=== PATIENT | male | born 1990 | race African-American/Black ===

== ENCOUNTER 2016-09-13 16:06 | Emergency (ER) | payer SELFPAY ==
--- NOTE | 2016-09-13 16:21 | ER Document Report ---
ED Medical Screen (RME) - General Stated Complaint: POSSIBLE BITE TO RIGHT THIGH Mode of Arrival: Ambulatory Information source: Patient Notes: 26 y/o M presents to ED c/o area of redness and tenderness to right thigh since yesterday. States thinks was bitten by insect but did did not witness it. I have greeted and performed a rapid initial assessment of this patient. A comprehensive ED assessment and evaluation of the patient, analysis of test results and completion of the medical decision making process will be conducted by additional ED providers. TRAVEL OUTSIDE OF THE [place] IN LAST 30 DAYS: No - Related Data Allergies/Adverse Reactions: No Known Allergies Allergy (Verified 09/13/16 16:19) Past Medical History Past Surgical History: Reports: Hx Orthopedic Surgery - R shoulder - Immunizations Immunizations up to date: Yes Hx Diphtheria, Pertussis, Tetanus Vaccination: No - pt refusing update Physical Exam - Vital signs Vitals: Temp Pulse Resp BP Pulse Ox 98.6 F 90 16 141/83 H 95 09/13/16 16:17 09/13/16 16:17 09/13/16 16:17 09/13/16 16:17 09/13/16 16:17 Course - Vital Signs Vital signs: Temp Pulse Resp BP Pulse Ox 98.6 F 90 16 141/83 H 95 09/13/16 16:17 09/13/16 16:17 09/13/16 16:17 09/13/16 16:17 09/13/16 16:17
--- NOTE | 2016-09-13 16:53 | ER Document Report ---
HPI - HPI Patient complains to provider of: possible bite right thigh Onset: Other - several days, worse yesterday, red Onset/Duration: Gradual Quality of pain: Achy, Throbbing Pain Level: 5 Context: 26 yo male with worsening possible bite to right anterior mid thigh. getting redder, warmer, more painful. No hx MRSA. Associated Symptoms: None Exacerbated by: Denies Relieved by: Denies Similar symptoms previously: No Recently seen / treated by doctor: No - ROS ROS below otherwise negative: Yes Systems Reviewed and Negative: Yes All other systems reviewed and negative - DERM Skin Color: Normal Past Medical History - General Information source: Patient - Social History Smoking Status: Never Smoker Chew tobacco use (# tins/day): No Frequency of alcohol use: None Drug Abuse: None Lives with: Spouse/Significant other Family History: Reviewed & Not Pertinent Patient has suicidal ideation: No Patient has homicidal ideation: No - Medical History Medical History: Negative Past Surgical History: Reports: Hx Orthopedic Surgery - R shoulder - Immunizations Immunizations up to date: Yes Hx Diphtheria, Pertussis, Tetanus Vaccination: No - pt refusing update Vertical Provider Document - CONSTITUTIONAL Agree With Documented VS: Yes Exam Limitations: No Limitations General Appearance: No Apparent Distress - INFECTION CONTROL TRAVEL OUTSIDE OF THE [place] IN LAST 30 DAYS: No - HEENT HEENT: Normocephalic - NECK Neck: Supple - RESPIRATORY O2 Sat by Pulse Oximetry: 95 - MUSCULOSKELETAL/EXTREMETIES Musculoskeletal/Extremeties: MAEW, FROM, Tender - red indurated 2 cm abscess with crusted center. light pink soft surrounding 10cm tissue - NEURO Level of Consciousness: Awake, Alert Motor/Sensory: No Motor Deficit, No Sensory Deficit - DERM Integumentary: Warm, Dry, Abscess - see above Course - Vital Signs Vital signs: Temp Pulse Resp BP Pulse Ox 98.6 F 90 16 141/83 H 95 09/13/16 16:17 09/13/16 16:17 09/13/16 16:17 09/13/16 16:17 09/13/16 16:17 Procedures - Incision and Drainage Right Thigh Time completed: 18:11 Type: Simple Anesthetic type: 1% Lidocaine mL's of anesthetic: 4 Blade size: 11 I&D procedure: Betadine prep applied, Sterile dressing applied, Other - NS irrigation Incision Method: Incision made by scalpel - t shape Amount/type of drainage: moderate pus, blood Adult Front & Back picture: 1 - abscess location Discharge - Discharge Clinical Impression: I and D rt thigh abscess Condition: Good Disposition: HOME, SELF-CARE Instructions: Warm Packs ([facility]), Elevation & Warmth ([facility]), Trimethoprim-Sulfa ( [facility]), Acetaminophen, Use of Fnkv-Snh-Cebfejw Ibuprofen ([facility]), Ultram ([facility]) Additional Instructions: warm compress, elevate take the dressing off on sunday morning to inspect the wound unless it feels worse, inspect sooner no work tomorrow recheck on sunday if it is not better, meaning less red, less pain return sooner if worse with fever, swelling red, hot Prescriptions: Sulfamethoxazole/Trimethoprim [Sulfamethoxazole-Tmp Ds Tablet] 1 each PO BID # 14 tablet Tramadol HCl [Ultram 50 mg Tablet] 50 mg PO ASDIR PRN #15 tablet PRN Reason: Forms: Return to Work
[2016-09-13] MEDS ORDERED: IBUPROFEN 800 MG TABLET PO ONE (17:02)
[2016-09-13] MEDS ORDERED: LIDOCAINE 4%/TETRACAINE 0.5%/EPI 0.18% 5 ML TOPICAL SOLN TOP ONE (17:02)
[2016-09-13] MEDS ORDERED: SULFAMETHOXAZOLE/TRIMETHOPRIM 800-160 MG TABLET PO ONE (17:02)
[2016-09-13 18:22] VITALS: BP 140/80
== END 2016-09-13 18:22 | disposition home or self-care (01) ==
LOC: ER 16:06
PROC: 0H9HXZZ Drainage of Right Upper Leg Skin, External Approach (ICD-10-PCS; principal; 2016-09-13)
DX: S70.361A Insect bite (nonvenomous), right thigh, initial encounter (principal); W57.XXXA Bitten or stung by nonvenomous insect and other nonvenomous arthropods, initial encounter
CPT/HCPCS: 99283; 10060; J3490

== ENCOUNTER 2016-09-18 20:13 | Observation (INO) | payer SELFPAY ==
[2016-09-18] MEDS ORDERED: ONDANSETRON 4 MG TAB.RAPDIS PO ONE (20:31)
[2016-09-18] MEDS ORDERED: IBUPROFEN 800 MG TABLET PO ONE (20:31)
--- NOTE | 2016-09-18 20:35 | ER Document Report ---
ED Medical Screen (RME) - General Chief Complaint: Flu Symptoms Stated Complaint: FEVER Time seen by provider: 20:32 Mode of Arrival: Ambulatory Information source: Patient Notes: 26-year-old male presents to ED for fever, headache, chills, nausea and vomiting , and body aches since this morning. Patient states she did not have a flu shot. States he came to the ED 4 days ago for a spider bite he had an I&D and has a Band-Aid to the area of his right upper thigh. I have greeted and performed a rapid initial assessment of this patient. A comprehensive ED assessment and evaluation of the patient, analysis of test results and completion of medical decision making process will be conducted by an additional ED providers. TRAVEL OUTSIDE OF THE [place] IN LAST 30 DAYS: No - Related Data Allergies/Adverse Reactions: No Known Allergies Allergy (Verified 09/13/16 16:19) Past Medical History Renal/ Medical History: Denies: Hx Peritoneal Dialysis Past Surgical History: Reports: Hx Orthopedic Surgery - R shoulder - Immunizations Immunizations up to date: Yes Hx Diphtheria, Pertussis, Tetanus Vaccination: No - pt refusing update
[2016-09-18] MEDS ORDERED: NORMAL SALINE 1000 ML 1,000 ML IV PRN (20:50)
[2016-09-18 21:25] LABS: ABSOLUTE EOSINOPHILS # (AUTO) 0.1 10^3/uL (0.0-0.6); ABSOLUTE LYMPHOCYTES (AUTO) 0.5 10^3/uL (0.5-4.7); ABSOLUTE MONOCYTES (AUTO) 0.7 10^3/uL (0.1-1.4); ABSOLUTE NEUT (AUTO) 4.8 10^3/uL (1.7-8.2); BASOPHILS % (AUTO) 0.2 % (0-2); EOSINOPHILS % (AUTO) 2.3 % (0-6); HEMATOCRIT 45.4 % (37.9-51.0); HEMOGLOBIN 15.1 g/dL (13.5-17.0); HGB HCT DIFFERENCE -0.1; LYMPHOCYTES % (AUTO) 7.7 % (13-45); MEAN CORPUSCULAR HEMOGLOBIN 29.1 pg (27.0-33.4); MEAN CORPUSCULAR HGB CONC 33.3 g/dL (32.0-36.0); MEAN CORPUSCULAR VOLUME 87 fl (80-97); MONOCYTES % (AUTO) 11.2 % (3-13); RED BLOOD COUNT 5.21 10^6/uL (4.35-5.55); RED CELL DISTRIBUTION WIDTH 12.9 % (11.5-14.0); SEGMENTED NEUTROPHILS % (AUTO) 78.6 % (42-78); WHITE BLOOD COUNT 6.1 10^3/uL (4.0-10.5)
[2016-09-18 21:42] LABS: ALANINE AMINOTRANSFERASE 34 U/L (21-72); ALKALINE PHOSPHATASE 68 U/L (38-126); ANION GAP 16 (5-19); ASPARTATE AMINO TRANSFERASE 42 U/L (17-59); BILIRUBIN,TOTAL 0.5 mg/dL (0.2-1.3); BLOOD UREA NITROGEN 21 mg/dL (7-20); CALCIUM 9.9 mg/dL (8.4-10.2); CARBON DIOXIDE 25 mmol/L (22-30); CHLORIDE 97 mmol/L (98-107); CREATININE RESULT 1.57 mg/dL (0.52-1.25); GLUCOSE 81 mg/dL (75-110); POTASSIUM 4.3 mmol/L (3.6-5.0); SODIUM 138.4 mmol/L (137-145); TOTAL PROTEIN 8.1 g/dL (6.3-8.2)
[2016-09-18] MEDS ORDERED: ACETAMINOPHEN 325 MG TABLET PO ONE (22:30)
[2016-09-18] MEDS ORDERED: CEFTRIAXONE INJ 1000 MG VIAL IV ONE (22:31)
[2016-09-18] MEDS ORDERED: VANCOMYCIN HCL INJ 1000 MG VIAL IV ONE (22:31)
--- NOTE | 2016-09-18 22:33 | ER Document Report ---
ED General - General Chief Complaint: Flu Symptoms Stated Complaint: FEVER Mode of Arrival: Ambulatory Notes: Patient is a 26-year-old male presents with complaints of fever. Patient was seen here a few days ago and had a abscess in his right thigh drain. He says he did squeeze more pus out of it. He has any pus recently. He was prescribed Bactrim has been taking it. Patient says since then he developed fevers. Today the fever at 23.5 at home. He's had some vomiting. Some body aches. Some headache. No cough. No congestion. No runny nose. Redness on his thigh has begun to spread some. No other complaints this time. TRAVEL OUTSIDE OF THE [place] IN LAST 30 DAYS: No - Related Data Allergies/Adverse Reactions: No Known Allergies Allergy (Verified 09/13/16 16:19) Past Medical History - General Information source: Patient - Social History Smoking Status: Unknown if Ever Smoked Frequency of alcohol use: None Drug Abuse: None Family History: Reviewed & Not Pertinent Patient has suicidal ideation: No Patient has homicidal ideation: No Renal/ Medical History: Denies: Hx Peritoneal Dialysis Past Surgical History: Reports: Hx Orthopedic Surgery - R shoulder - Immunizations Immunizations up to date: Yes Hx Diphtheria, Pertussis, Tetanus Vaccination: No - pt refusing update Review of Systems - Review of Systems Notes: My Normal Review Basic REVIEW OF SYSTEMS: CONSTITUTIONAL : Fever EENT: Denies eye, ear, throat, or mouth pain or symptoms. Denies nasal or sinus congestion. RESPIRATORY: Denies cough, cold, or chest congestion. Denies shortness of breath, difficulty breathing, or wheezing. GASTROINTESTINAL: Denies abdominal pain. Denies nausea, vomiting, or diarrhea. Denies constipation. Last BM: MUSCULOSKELETAL: Denies neck or back pain or joint pain or swelling. SKIN: Cellulitis on right thigh. NEUROLOGICAL: Denies altered mental status or loss of consciousness. Denies headache. Denies weakness or paralysis or loss of use of either side. Denies problems with gait or speech. Denies sensory or motor loss. ALL OTHER SYSTEMS REVIEWED AND NEGATIVE. Physical Exam - Notes Notes: General Appearance: Well nourished, alert, cooperative, no acute distress, mild obvious discomfort. Vitals: reviewed, See vital signs table. Head: no swelling or tenderness to the head Eyes: PERRL, EOMI, Conjuctiva clear Mouth: No decreasd moisture Neck: Supple, no neck tenderness, patient is able to move his head back and forth on exam without difficulty. Lungs: No wheezing, No rales, No rhonci, No accessory muscle use, good air exchange bilaterally. Heart: Tachycardic rate, Regular rythm, No murmur, no rub Abdomen: Normal BS, soft, No rigidity, No abdominal tenderness, No guarding, no rebound, no abdominal masses, no organomegaly Extremities: strength 5/5 in all extremities, good pulses in all extremities, no swelling or tenderness in the extremities, no edema. Skin: warm, dry, appropriate color, patient has erythema on right thigh is immediately around the area where it appears abscess was drained. Patient now has streaking of redness spreading from the initial area where the abscess was drained. Patient says this is new in the last 24 hours. Neuro: speech clear, oriented x 3, normal affect, responds appropriately to questions. Course - Laboratory Result Diagrams: 09/18/16 20:50 09/18/16 20:50 Laboratory results interpreted by me: 09/18/16 09/18/16 20:50 20:50 Seg Neutrophils % 78.6 H Lymphocytes % 7.7 L Chloride 97 L BUN 21 H Creatinine 1.57 H Est GFR (Non-Af Amer) 54 L - Transfer of Care Notes: 09/18/16 23:45 Patient has continued to have some worsening redness and he is also developing areas of redness and other extremities on his body suggesting that his infection is becoming more systemic. Has no looks cytosis base had very high fevers today and even has likely a fever here as well as tachycardia. I did give him a dose of vancomycin and Rocephin. Due to spreading redness and fever despite being on outpatient antibiotics feel that it's appropriate to admit the patient for further treatment. Did speak with the hospitalist agrees with the patient. Dictation of this chart was performed using voice recognition software; therefore, there may be some unintended grammatical errors. 09/18/16 23:46 Discharge - Discharge Clinical Impression: Cellulitis Qualifiers: Site of cellulitis: extremity Site of cellulitis of extremity: lower extremity Laterality: right Qualified Code(s): L03.115 - Cellulitis of right lower limb Condition: Stable Disposition: ADMITTED OBSERVATION Admitting Provider: Hospitalist Unit Admitted: Medical Floor
[2016-09-19] MEDS ORDERED: MAGNESIUM HYDROXIDE SUSP 30 ML UDCUP PO PRN
[2016-09-19] MEDS ORDERED: KETOROLAC TROMETHAMINE INJ/PF 30 MG/1 ML SDV IV PRN (00:03)
[2016-09-19 01:12] LABS: APPEARANCE,URINE CLEAR; BILIRUBIN,URINE NEGATIVE (NEGATIVE); GLUCOSE, URINE NEGATIVE (NEGATIVE); KETONES,URINE NEGATIVE (NEGATIVE); LEUKOCYTE ESTERASE,URINE NEGATIVE (NEGATIVE); NITRITE,URINE NEGATIVE (NEGATIVE); PROTEIN,URINE NEGATIVE (NEGATIVE); URINE SPECIFIC GRAVITY 1.017
[2016-09-19] MEDS ORDERED: IPRATROPIUM/ALBUTEROL 0.5-2.5 MG/3 ML AMPUL NEB ONE (02:30)
[2016-09-19 04:26] LABS: HEMATOCRIT 44.8 % (37.9-51.0); HEMOGLOBIN 14.8 g/dL (13.5-17.0); HGB HCT DIFFERENCE -0.4; MEAN CORPUSCULAR HEMOGLOBIN 28.9 pg (27.0-33.4); MEAN CORPUSCULAR HGB CONC 32.9 g/dL (32.0-36.0); MEAN CORPUSCULAR VOLUME 88 fl (80-97); RED BLOOD COUNT 5.11 10^6/uL (4.35-5.55); RED CELL DISTRIBUTION WIDTH 13.1 % (11.5-14.0); WHITE BLOOD COUNT 7.4 10^3/uL (4.0-10.5)
[2016-09-19 04:48] LABS: ANION GAP 13 (5-19); BLOOD UREA NITROGEN 18 mg/dL (7-20); CALCIUM 9.5 mg/dL (8.4-10.2); CARBON DIOXIDE 26 mmol/L (22-30); CHLORIDE 104 mmol/L (98-107); CREATININE RESULT 1.46 mg/dL (0.52-1.25); GLUCOSE 103 mg/dL (75-110); POTASSIUM 4.5 mmol/L (3.6-5.0); SODIUM 142.7 mmol/L (137-145)
[2016-09-19 05:11] LABS: BAND NEUTROPHILS % (MANUAL) 3 % (3-5); BASOPHILS % (MANUAL) 0 % (0-2); EOSINOPHILS % (MANUAL) 0 % (0-6); LYMPHOCYTES % (MANUAL) 19 % (13-45); TOTAL CELLS COUNTED 100
[2016-09-19 05:14] LABS: RBC MORPHOLOGY COMMENT NORMO-CYTIC/CHROMIC; TOXIC GRANULATION SLIGHT; TOXIC VACUOLATION PRESENT
[2016-09-19] MEDS ORDERED: HEPARIN SOD (PORCINE) 5,000 UNIT/ML 1 ML SYRINGE SUBCUT SCH (06:00)
--- NOTE | 2016-09-19 07:29 | PDOC H&P ---
History of Present Illness Admission Date/PCP: 09/19/16 00:00 Patient complains of: Right thigh swelling and pain History of Present Illness: KLEVER MADISON JR is a 26 year old male who 4 days ago developed a abscess to the right thigh and came to the emergency room for evaluation having an IND he was placed on Bactrim but had expressed purulent exudate over the last 24 hours developing worsening erythema fever and pain. In the emergency room he is found to have a 6 x 6 cm erythema and minimal purulent exudate from a 0.5 x 0.5 incision on the anterior aspect of his middle thigh. He is also found to have significant cough and wheeze which has worsened over the last 3 days. He is referred to the hospitalist for observation. Past Surgical History Past Surgical History: Reports: Orthopedic Surgery - R shoulder Social History Information Source: Patient Lives with: Family Smoking Status: Unknown if Ever Smoked Hx Recreational Drug Use: No Drugs: None - Advance Directive Resuscitation Status: Full Code Family History Family History: COPD Parental Family History Reviewed: Yes Children Family History Reviewed: Yes Sibling(s) Family History Reviewed.: Yes Medication/Allergy Home Medications: No Home Medications 09/19/16 Allergies/Adverse Reactions: No Known Allergies Allergy (Verified 09/13/16 16:19) Review of Systems Constitutional: PRESENT: chills, fever(s). ABSENT: headache(s), weight gain, weight loss Eyes: ABSENT: visual disturbances Ears: ABSENT: hearing changes Cardiovascular: ABSENT: chest pain, dyspnea on exertion, edema, orthropnea, palpitations Respiratory: PRESENT: cough, dyspnea. ABSENT: hemoptysis, sputum Gastrointestinal: ABSENT: abdominal pain, constipation, diarrhea, hematemesis, hematochezia, nausea, vomiting Genitourinary: ABSENT: dysuria, hematuria Musculoskeletal: ABSENT: joint swelling Integumentary: PRESENT: lesions, wounds, other - 6 x 6 cm Erythema and pain over the right thigh. ABSENT: rash Neurological: ABSENT: abnormal gait, abnormal speech, confusion, dizziness, focal weakness, syncope Psychiatric: ABSENT: anxiety, depression, homidical ideation, suicidal ideation Endocrine: ABSENT: cold intolerance, heat intolerance, polydipsia, polyuria Hematologic/Lymphatic: ABSENT: easy bleeding, easy bruising Physical Exam Vital Signs: Temp Pulse Resp BP Pulse Ox 97.5 F 87 16 135/78 H 93 09/19/16 02:41 09/19/16 02:41 09/19/16 02:41 09/19/16 02:41 09/19/16 02:41 Intake & Output 09/17/16 09/18/16 09/19/16 11:59 11:59 11:59 Weight 97.1 kg General appearance: PRESENT: no acute distress, well-developed, well-nourished Head exam: PRESENT: atraumatic, normocephalic Eye exam: PRESENT: conjunctiva pink, EOMI, PERRLA. ABSENT: scleral icterus Ear exam: PRESENT: normal external ear exam Mouth exam: PRESENT: moist, tongue midline Neck exam: ABSENT: carotid bruit, JVD, lymphadenopathy, thyromegaly Respiratory exam: PRESENT: crackles, prolonged expiratory phas, symmetrical, wheezes. ABSENT: rales, rhonchi Cardiovascular exam: PRESENT: RRR. ABSENT: diastolic murmur, rubs, systolic murmur Pulses: PRESENT: normal dorsalis pedis pul Vascular exam: PRESENT: normal capillary refill GI/Abdominal exam: PRESENT: normal bowel sounds, soft. ABSENT: distended, guarding, mass, organolmegaly, rebound, tenderness Rectal exam: PRESENT: deferred Extremities exam: PRESENT: full ROM, tenderness, other - 6 x 6 cm area of induration and erythema over the right anterior middle thigh. ABSENT: calf tenderness, clubbing, pedal edema Neurological exam: PRESENT: alert, awake, oriented to person, oriented to place , oriented to time, oriented to situation, CN II-XII grossly intact. ABSENT: motor sensory deficit Psychiatric exam: PRESENT: appropriate affect, normal mood. ABSENT: homicidal ideation, suicidal ideation Skin exam: PRESENT: dry, intact, warm. ABSENT: cyanosis, rash Results Laboratory Results: 09/19/16 03:46 09/19/16 03:46 09/19/16 09/19/16 03:46 03:46 WBC 7.4 RBC 5.11 Hgb 14.8 Hct 44.8 MCV 88 MCH 28.9 MCHC 32.9 RDW 13.1 Plt Count 189 Seg Neutrophils % Not Reportable Lymphocytes % Not Reportable Monocytes % Not Reportable Eosinophils % Not Reportable Basophils % Not Reportable Absolute Neutrophils Not Reportable Absolute Lymphocytes Not Reportable Absolute Monocytes Not Reportable Absolute Eosinophils Not Reportable Absolute Basophils Not Reportable Sodium 142.7 Potassium 4.5 Chloride 104 Carbon Dioxide 26 Anion Gap 13 BUN 18 Creatinine 1.46 H Est GFR ( Amer) > 60 Est GFR (Non-Af Amer) 58 L Glucose 103 Calcium 9.5 Impressions: Chest X-Ray 09/18/16 20:35 IMPRESSION: NO SIGNIFICANT RADIOGRAPHIC FINDING IN THE CHEST. Assessment & Plan - Diagnosis (1) Cellulitis Qualifiers: Site of cellulitis: extremity Site of cellulitis of extremity: lower extremity Laterality: right Qualified Code(s): L03.115 - Cellulitis of right lower limb Is this a current diagnosis for this admission?: YesPlan: Cellulitis Will obtain blood and wound culture repeat CBC, continue empiric antibiotic coverage for community-acquired MRSA with double coverage and symptomatic management. Consider surgical consultation if not significantly improved with follow-up evaluation. (2) Acute bronchitis Is this a current diagnosis for this admission?: YesPlan: Acute bronchitis albuterol and Atrovent nebulizer empiric antibiotics consider chest x-ray if unimproved - Time Time Spent: 30 to 50 Minutes
[2016-09-19] MEDS: IPRATROPIUM/ALBUTEROL 0.5-2.5 MG/3 ML AMPUL NEB SCH ×2 (08:37→17:10)
[2016-09-19] MEDS ORDERED: DOCUSATE SODIUM 100 MG CAPSULE PO SCH (10:00)
[2016-09-19 15:34] VITALS: BP 150/92
--- NOTE | 2016-09-19 16:27 | PDOC DISCHARGE SUMMARY ---
General - Admit/Disc Date/PCP Admission Date/Primary Care Provider: 09/19/16 00:00 Discharge Date: 09/19/16 - Discharge Diagnosis (1) Cellulitis Is this a current diagnosis for this admission?: Yes (2) Acute bronchitis Is this a current diagnosis for this admission?: Yes - Additional Information Resuscitation Status: Full Code Discharge Diet: Regular Discharge Activity: Activity As Tolerated Home Medications: Albuterol Sulfate [Ventolin Hfa] 1 - 2 puff IH Q4 PRN #1 [email or web address] 09/19/16 Diphenhydramine HCl 2% Cream [Benadryl 2% Allergy Cream 30 gm] 1 applic TP QID PRN #1 tube 09/19/16 Doxycycline Hyclate [Vibramycin] 100 mg PO BID #10 capsule 09/19/16 History of Present Illness Patient complains of: Leg pain History of Present Illness: KLEVER MADISON JR is a 26 year old mal ewho 4 days ago developed a abscess to the right thigh and came to the emergency room for evaluation having an IND he was placed on Bactrim but had expressed purulent exudate over the last 24 hours developing worsening erythema pain. In the emergency room he is found to have a 6 x 6 cm erythema and minimal purulent exudate from a 0.5 x 0.5 incision on the anterior aspect of his middle thigh. Patient is also found to have significant cough and wheeze which has worsened over the last 3 days. He is referred to the hospitalist for observation. Hospital Course Hospital Course: The patient was admitted to [facility]. The patient was placed on scheduled nebs as well as PRN nebs and supplemental oxygen. The patient's oxygen and nebs were titrated and weaned. The patient is back to baseline and able to complete sentences. Blood cultures were obtained. Patient stated that cellulitis of the leg had improved however he did develop a diffuse rash on bilateral lower extremities Blood cultures revealed no growth. . The patient had drastic improvement of symptoms. Clinical assessment has improved. Patient is urgent for discharge. Physical Exam Vital Signs: Temp Pulse Resp BP Pulse Ox 98.7 F 92 17 150/92 H 99 09/19/16 14:32 09/19/16 14:32 09/19/16 14:32 09/19/16 14:32 09/19/16 14:32 Intake & Output 09/17/16 09/18/1609/19/17 23:59 23:59 23:59 Weight 97.1 kg General appearance: PRESENT: no acute distress, cooperative, well-developed, well-nourished Head exam: PRESENT: atraumatic, normocephalic Eye exam: PRESENT: conjunctiva pink, EOMI, PERRLA. ABSENT: scleral icterus Ear exam: PRESENT: normal external ear exam Mouth exam: PRESENT: moist, tongue midline Neck exam: ABSENT: carotid bruit, JVD, lymphadenopathy, thyromegaly Respiratory exam: PRESENT: clear to auscultation toshia. ABSENT: rales, rhonchi, wheezes Cardiovascular exam: PRESENT: RRR. ABSENT: diastolic murmur, rubs, systolic murmur Pulses: PRESENT: normal dorsalis pedis pul Vascular exam: PRESENT: normal capillary refill GI/Abdominal exam: PRESENT: normal bowel sounds, soft. ABSENT: distended, guarding, mass, organolmegaly, rebound, tenderness Rectal exam: PRESENT: deferred Extremities exam: PRESENT: full ROM. ABSENT: calf tenderness, clubbing, pedal edema Musculoskeletal exam: PRESENT: other - Cellulitis dressing dry intact Neurological exam: PRESENT: alert, awake, oriented to person, oriented to place , oriented to time, oriented to situation, CN II-XII grossly intact. ABSENT: motor sensory deficit Psychiatric exam: PRESENT: appropriate affect, normal mood. ABSENT: homicidal ideation, suicidal ideation Skin exam: PRESENT: dry, intact, urticaria, warm. ABSENT: cyanosis, rash Results Laboratory Results: 09/19/16 03:46 09/19/16 03:46 09/19/16 09/19/16 03:46 03:46 WBC 7.4 RBC 5.11 Hgb 14.8 Hct 44.8 MCV 88 MCH 28.9 MCHC 32.9 RDW 13.1 Plt Count 189 Seg Neutrophils % Not Reportable Lymphocytes % Not Reportable Monocytes % Not Reportable Eosinophils % Not Reportable Basophils % Not Reportable Absolute Neutrophils Not Reportable Absolute Lymphocytes Not Reportable Absolute Monocytes Not Reportable Absolute Eosinophils Not Reportable Absolute Basophils Not Reportable Sodium 142.7 Potassium 4.5 Chloride 104 Carbon Dioxide 26 Anion Gap 13 BUN 18 Creatinine 1.46 H Est GFR ( Amer) > 60 Est GFR (Non-Af Amer) 58 L Glucose 103 Calcium 9.5 Impressions: Chest X-Ray 09/18/16 20:35 IMPRESSION: NO SIGNIFICANT RADIOGRAPHIC FINDING IN THE CHEST. Qualifiers PATEINT BEING DISCHARGED WITH ANY OF THE FOLLOWING DIAGNOSIS?: No Plan Discharge Plan: on this visit including assessment, plan, physical examination, family meeting, and specialty collaboration, and patient education is 35 minutes. Time Spent: Less than 30 Minutes
== END 2016-09-19 14:32 | disposition home or self-care (01) ==
LOC: ER 20:13 → EH 09-19 → UNDOADMOB 09-19 00:11 → EH 09-19 00:11
PROVIDERS: ADMIT Internal Medicine; ATTEND Internal Medicine
DX: L03.115 Cellulitis of right lower limb (principal); J20.9 Acute bronchitis, unspecified
CPT/HCPCS: 94640 ×2; 99284; 96365; 96367; 36415 ×2; 87040; 87086; 85025 ×2; 80048; 80053; 81001; 83605; 87804; 71020; G0378; J1644; S0119; J0696; J7030; J3370; J7620

== ENCOUNTER 2017-04-17 17:13 | Emergency (ER) | payer SELFPAY ==
[2017-04-17] MEDS ORDERED: LIDOCAINE 2% VISCOUS SOLN 20 ML UDCUP PO ONE (18:23)
--- NOTE | 2017-04-17 18:28 | ER Document Report ---
ED ENT - General Chief Complaint: Sore Throat Stated Complaint: CHEST PAIN,THROAT PAIN Time Seen by Provider: 04/17/17 17:57 Mode of Arrival: Ambulatory Information source: Patient Notes: 26-year-old male presents to ED for sore throat and pain from the throat to the chest when he coughs. He states he has had this cough for a long time worse for the last couple days. TRAVEL OUTSIDE OF THE [place] IN LAST 30 DAYS: No - HPI Patient complains to provider of: Throat problem, Other - Cough that hurt makes his chest hurt Onset: Other - States he has a chronic cough but it has been worse for the last 6 days sore throat for the last 6 days no fever Onset/Duration: Intermittent Quality of pain: Other - Sharp burning throat burning down his throat to his chest when he coughs Severity: Moderate Context: Recent Illness Location of pain: Throat Associated symptoms: Cough - Causes chest pain, Sinus drainage, Sore throat Similar symptoms previously: Yes Recently seen / treated by doctor: No - Related Data Allergies/Adverse Reactions: No Known Allergies Allergy (Verified 09/13/16 16:19) Past Medical History - General Information source: Patient - Social History Smoking Status: Former Smoker Cigarette use (# per day): No Chew tobacco use (# tins/day): No Smoking Education Provided: No Frequency of alcohol use: None Drug Abuse: None Occupation: [employer] Lives with: Parents Family History: COPD Patient has suicidal ideation: No Patient has homicidal ideation: No - Past Medical History Cardiac Medical History: Reports: None Pulmonary Medical History: Reports: Hx Bronchitis EENT Medical History: Reports: None Neurological Medical History: Reports: None Endocrine Medical History: Reports: None Renal/ Medical History: Reports: None Malignancy Medical History: Reports None GI Medical History: Reports: None Musculoskeltal Medical History: Reports Hx Musculoskeletal Trauma Skin Medical History: Reports None Psychiatric Medical History: Reports: None Traumatic Medical History: Reports: None Infectious Medical History: Reports: None Past Surgical History: Reports: Hx Inguinal Hernia - Right, Hx Orthopedic Surgery - R shoulder - Immunizations Immunizations up to date: Yes Hx Diphtheria, Pertussis, Tetanus Vaccination: No - pt refusing update Review of Systems - Review of Systems Constitutional: Recent illness. denies: Fever EENT: Nose discharge, Sinus discharge, Throat pain Cardiovascular: No symptoms reported Respiratory: Cough - Pain down throat to chest when he coughs Gastrointestinal: No symptoms reported Genitourinary: No symptoms reported Male Genitourinary: No symptoms reported Musculoskeletal: No symptoms reported Skin: No symptoms reported Hematologic/Lymphatic: No symptoms reported Neurological/Psychological: No symptoms reported -: Yes All other systems reviewed and negative Physical Exam - Vital signs Vitals: Temp Pulse Resp BP Pulse Ox 97.5 F 62 18 157/98 H 98 04/17/17 17:59 04/17/17 17:59 04/17/17 17:59 04/17/17 17:59 04/17/17 17:59 Interpretation: Normal - General General appearance: Appears well, Alert - HEENT Head: Normocephalic, Atraumatic Eyes: Normal Pupils: PERRL Ears: Normal External canal: Normal Tympanic membrane: Normal Sinus: Normal Nasal: Purulent discharge, Swelling Mouth/Lips: Normal Mucous membranes: Normal Pharynx: Erythema, Post nasal drainage. No: Exudate, Tonsillar hypertrophy Neck: Normal - Respiratory Respiratory status: No respiratory distress Chest status: Nontender Breath sounds: Normal Chest palpation: Normal - Cardiovascular Rhythm: Regular Heart sounds: Normal auscultation Murmur: No - Abdominal Inspection: Normal Distension: No distension Bowel sounds: Normal Tenderness: Nontender Organomegaly: No organomegaly - Back Back: Normal, Nontender - Extremities General upper extremity: Normal inspection, Nontender, Normal color, Normal ROM , Normal temperature General lower extremity: Normal inspection, Nontender, Normal color, Normal ROM , Normal temperature, Normal weight bearing. No: Naila's sign - Neurological Neuro grossly intact: Yes Cognition: Normal Orientation: AAOx4 [place] Coma Scale Eye Opening: Spontaneous [place] Coma Scale Verbal: Oriented [place] Coma Scale Motor: Obeys Commands Loan Coma Scale Total: 15 Speech: Normal Motor strength normal: LUE, RUE, LLE, RLE Sensory: Normal - Psychological Associated symptoms: Normal affect, Normal mood - Skin Skin Temperature: Warm Skin Moisture: Dry Skin Color: Normal Course - Re-evaluation Re-evalutation: 04/17/17 21:28 Chest x-ray came back recommend in the CT chest. Discussed with Dr. Loera and he recommended a CBC chemistry and chest CT with IV contrast which were completed. Labs and chest CT were negative. Patient was given the results of the labs and CT. Prescription for Tessalon cough syrup written and patient will be discharged home. - Vital Signs Vital signs: Temp Pulse Resp BP Pulse Ox 98.0 F 75 18 165/102 H 98 04/17/17 21:40 04/17/17 21:40 04/17/17 17:59 04/17/17 21:40 04/17/17 21:40 - Laboratory Result Diagrams: 04/17/17 19:52 04/17/17 19:52 Laboratory results interpreted by me: 04/17/17 19:52 Seg Neutrophils % 37.7 L Lymphocytes % 49.5 H - Diagnostic Test Radiology reviewed: Image reviewed, Reports reviewed Discharge - Discharge Clinical Impression: URI (upper respiratory infection) Qualifiers: URI type: unspecified URI Qualified Code(s): J06.9 - Acute upper respiratory infection, unspecified Condition: Stable Disposition: HOME, SELF-CARE Instructions: Family Physicians / Practices Additional Instructions: UPPER RESPIRATORY ILLNESS: You have a viral infection of the respiratory passages -- a "cold." This common infection causes nasal congestion, drainage, and often sore throat and cough. It is highly contagious. The disease usually lasts about 10 to 14 days. There is no "cure" for the viral infection -- it must run its course. If there is a complication, such as bacterial infection in the nose, sinuses, middle ear, or bronchial tubes, antibiotics may be required. The antibiotics won't affect the virus. Drink plenty of fluids. A humidifier may help. An expectorant medication or decongestant may make you more comfortable. Use acetaminophen or ibuprofen for fever or aches. See the doctor if fever persists over two days, if there is any significant worsening of your symptoms, or if you simply fail to improve as expected. COUGH-SUPPRESSANT & EXPECTORANT MEDICATION: You are to use a cough medication as needed for relief of symptoms. This medicine is a combination of an expectorant (to make the mucous thinner and more easily "coughed up") and a cough suppressant (to reduce the frequency of coughing). The cough-suppressant medicine is related to narcotics. You may experience mild nausea and sleepiness. Some patients who are very sensitive to narcotics may have stomach pain from this medicine. Taking the medicine with food reduces these side effects. Do not drive or work with machinery until you know how this medicine affects you. The expectorant should have no side effects. Iodine-containing expectorants (such as organidin) should not be taken by persons with active thyroid disease unless approved by your doctor. Call the doctor if you develop shortness of breath, hives, rash, itching, lightheadedness, or severe nausea and vomiting. USE OF ACETAMINOPHEN (Tylenol): Acetaminophen may be taken for pain relief or fever control. It's much safer than aspirin, offering a wider range of "safe" dosages. It is safe during . Some brand names are Tylenol, Panadol, Datril, Anacin 3, Tempra, and Liquiprin. Acetaminophen can be repeated every four hours. The following are maximum recommended dosages: >89 pounds or adults 650 mg to 900 mg Acetaminophen can be repeated every four hours. Maximum dose not to exceed 4000 mg a day. FOLLOW-UP CARE: If you have been referred to a physician for follow-up care, call the physician s office for an appointment as you were instructed or within the next two days. If you experience worsening or a significant change in your symptoms, notify the physician immediately or return to the Emergency Department at any time for re-evaluation. Prescriptions: Dextromethorphan HBr [Tussin Cough] 10 mg PO Q4HP PRN #120 ml PRN Reason: Guaifenesin/Hydrocodone Bit [Hycotuss Expectorant] 5 ml PO Q6HP PRN #180 ml PRN Reason: Forms: Elevated Blood Pressure, Return to Work
--- NOTE | 2017-04-17 19:05 | RADIOLOGY REPORT (SQ) ---
EXAM DESCRIPTION: CHEST PA/LAT COMPLETED DATE/TIME: 04/17/2017 6:50 pm REASON FOR STUDY: cough pain with cough COMPARISON: 09/18/2016 EXAM PARAMETERS: NUMBER OF VIEWS: two views TECHNIQUE: Digital Frontal and Lateral radiographic views of the chest acquired. RADIATION DOSE: NA LIMITATIONS: none FINDINGS: LUNGS AND PLEURA: No opacities, masses or pneumothorax. No pleural effusion. MEDIASTINUM AND HILAR STRUCTURES: Increased density within the retrosternal/ pre cardiac space. Othe rwise normal. HEART AND VASCULAR STRUCTURES: Heart normal size. No evidence for failure. BONES: No acute findings. HARDWARE: None in the chest. OTHER: No other significant finding. IMPRESSION: LUNGS ARE CLEAR. INCREASED DENSITY WITHIN THE RETROSTERNAL/PRE CARDIAC SPACE COULD REPRESENT PLEURAL EFFUSION OR PERIC ARDIAL EFFUSION. CT IS AVAILABLE FOR FURTHER CHARACTERIZATION CLINICALLY INDICATED. TECHNICAL DOCUMENTATION: JOB ID: [id number] [employer]- All Rights Reserved
[2017-04-17 19:59] LABS: ABSOLUTE BASOPHILS # (AUTO) 0.1 10^3/uL (0.0-0.2); ABSOLUTE EOSINOPHILS # (AUTO) 0.1 10^3/uL (0.0-0.6); ABSOLUTE LYMPHOCYTES (AUTO) 3.8 10^3/uL (0.5-4.7); ABSOLUTE MONOCYTES (AUTO) 0.8 10^3/uL (0.1-1.4); ABSOLUTE NEUT (AUTO) 2.9 10^3/uL (1.7-8.2); EOSINOPHILS % (AUTO) 0.9 % (0-6); HEMATOCRIT 44.8 % (37.9-51.0); HEMOGLOBIN 15.6 g/dL (13.5-17.0); LYMPHOCYTES % (AUTO) 49.5 % (13-45); MEAN CORPUSCULAR HEMOGLOBIN 30.3 pg (27.0-33.4); MEAN CORPUSCULAR HGB CONC 34.8 g/dL (32.0-36.0); MEAN CORPUSCULAR VOLUME 87 fl (80-97); MONOCYTES % (AUTO) 10.9 % (3-13); RED BLOOD COUNT 5.14 10^6/uL (4.35-5.55); RED CELL DISTRIBUTION WIDTH 12.8 % (11.5-14.0); SEGMENTED NEUTROPHILS % (AUTO) 37.7 % (42-78); WHITE BLOOD COUNT 7.7 10^3/uL (4.0-10.5)
[2017-04-17 20:24] LABS: ANION GAP 10 (5-19); BLOOD UREA NITROGEN 18 mg/dL (7-20); CALCIUM 10.2 mg/dL (8.4-10.2); CARBON DIOXIDE 26 mmol/L (22-30); CHLORIDE 102 mmol/L (98-107); CREATININE RESULT 0.96 mg/dL (0.52-1.25); GLUCOSE 93 mg/dL (75-110); POTASSIUM 4.3 mmol/L (3.6-5.0); SODIUM 137.7 mmol/L (137-145)
--- NOTE | 2017-04-17 20:32 | RADIOLOGY REPORT (SQ) ---
EXAM DESCRIPTION: CT CHEST WITH COMPLETED DATE/TIME: 04/17/2017 8:18 pm REASON FOR STUDY: chest pain recommended by radiologist COMPARISON: None. TECHNIQUE: CT scan of the chest performed using helical scanning technique with dynamic intravenous contrast injection. Images reviewed with lung, soft tissue and bone windows. Reconstructed coronal and sagittal MPR images reviewed. All images stored on PACS. All CT scanners at this facility use dose modulation, iterative reconstruction, and/or weight based d osing when appropriate to reduce radiation dose to as low as reasonably achievable (ALARA). [facility]: Dose Right [facility]: CareDose [facility]: Dose Right [facility]: Teradose 4D [facility]: [employer] CONTRAST TYPE AND DOSE: contrast/concentration: Isovue 370.00 mg/ml; Total Contrast Delivered: 80.0 ml; Total Saline Delivered: 45.0 ml RENAL FUNCTION: None required. The patient is less than 50 years old. RADIATION DOSE: Up-to-date CT equipment and radiation dose reduction techniques were employed. CTDIv ol: 13.8 mGy. DLP: 564 mGy-cm. . LIMITATIONS: None. FINDINGS: LUNGS AND PLEURA: No opacities, nodules, masses. No pneumothorax. No effusions. HILAR AND MEDIASTINAL STRUCTURES: No identified masses or abnormal nodes. There is prominent fat in the retrosternal airspace. There is a small amount of residual thymic tissue. HEART AND VASCULAR STRUCTURES: No aneurysm or dissection. No central pulmonary emboli. No pericardi al effusion. HARDWARE: None in the chest. UPPER ABDOMEN: No significant findings. Limited exam. THYROID AND OTHER SOFT TISSUES: There are small axillary lymph nodes most likely reactive. None are pathologic based on size criteria. The thyroid gland is unremarkable. BONES: No significant finding. OTHER: No other significant finding. IMPRESSION: No acute findings in the chest. Prominent retrosternal fat and small amount of residual thymic tissue is noted. TECHNICAL DOCUMENTATION: JOB ID: [id number] Quality ID # [id number]: Final reports with documentation of one or more dose reduction techniques (e.g., Au tomated exposure control, adjustment of the mA and/or kV according to patient size, use of iterative reconstruction technique) 2010 [employer]- All Rights Reserved
[2017-04-17 21:43] VITALS: BP 165/102
== END 2017-04-17 21:43 | disposition home or self-care (01) ==
LOC: ER 17:13
DX: J06.9 Acute upper respiratory infection, unspecified (principal); J02.9 Acute pharyngitis, unspecified; R07.89 Other chest pain; R05 Cough; J34.89 Other specified disorders of nose and nasal sinuses; R09.82 Postnasal drip; Z87.891 Personal history of nicotine dependence
CPT/HCPCS: 99284; 36415; 87070; 87880; 85025; 80048; 71020; 71260; J3490

== ENCOUNTER 2017-08-01 11:45 | Emergency (ER) | payer SELFPAY ==
[2017-08-01] MEDS ORDERED: DIAZEPAM 5 MG TABLET PO ONE (12:19)
[2017-08-01] MEDS ORDERED: KETOROLAC TROMETHAMINE INJ/PF 30 MG/1 ML SDV IM ONE ×2 (12:19→12:27)
[2017-08-01] MEDS ORDERED: DEXAMETHASONE SOD PHOS INJ 10 MG/1 ML VIAL IM ONE (12:19)
--- NOTE | 2017-08-01 12:21 | ER Document Report ---
HPI - HPI Pain Level: 5 Notes: Patient is a 27-year-old male no significant past medical history presents ED complaining of low back pain that started today when he was walking w/o known injury. patient states that the pain is sharp and feels like it is grabbing in his back. Patient states that he has been having difficulties ambulating because of the pain, but is able to weight-bear. Patient states that bending or twisting at the waist makes his pain worse. Patient is tolerating p.o. He denies any IV drug use, diabetes, or other immunocompromised condition. Patient denies any back surgeries or injections. He denies any other recent illness. Denies any headache, fever, neck pain, URI, sore throat, chest pain, palpitations, syncope, cough, shortness of breath, wheeze, dyspnea, abdominal pain, nausea/vomiting/diarrhea, urinary retention, dysuria, hematuria, loss of control of bowel or bladder, numbness/tingling, saddle anesthesia, muscle paralysis/weakness, or rash. - ROS Notes: REVIEW OF SYSTEMS: CONSTITUTIONAL : Denies fever, chills, or sweats. Denies recent illness. EENT: Denies eye, ear, throat, or mouth pain or symptoms. Denies nasal or sinus congestion or discharge. Denies throat, tongue, or mouth swelling or difficulty swallowing. CARDIOVASCULAR: Denies chest pain. Denies palpitations or racing or irregular heart beat. Denies ankle edema. RESPIRATORY: Denies cough, cold, or chest congestion. Denies shortness of breath, difficulty breathing, or wheezing. GASTROINTESTINAL: Denies abdominal pain or distention. Denies nausea, vomiting , or diarrhea. Denies blood in vomitus, stools, or per rectum. Denies black, tarry stools. Denies constipation. GENITOURINARY: Denies difficulty urinating, painful urination, burning, frequency, blood in urine, or discharge. MUSCULOSKELETAL: see hpi SKIN: Denies rash, lesions or sores. NEUROLOGICAL: Denies confusion or altered mental status. Denies passing out or loss of consciousness. Denies dizziness or lightheadedness. Denies headache. Denies weakness or paralysis or loss of use of either side. Denies problems with gait or speech. Denies sensory loss, numbness, or tingling. ALL OTHER SYSTEMS REVIEWED AND NEGATIVE. Dictation was performed using Dragon voice recognition software - REPRODUCTIVE Reproductive: DENIES: : Past Medical History - Social History Smoking Status: Never Smoker Family History: COPD Pulmonary Medical History: Reports: Hx Bronchitis Musculoskeltal Medical History: Reports Hx Musculoskeletal Trauma Past Surgical History: Reports: Hx Inguinal Hernia - Right, Hx Orthopedic Surgery - R shoulder - Immunizations Immunizations up to date: Yes Hx Diphtheria, Pertussis, Tetanus Vaccination: No - pt refusing update Vertical Provider Document - CONSTITUTIONAL Agree With Documented VS: Yes Notes: PHYSICAL EXAMINATION: GENERAL: Well-appearing, well-nourished and in no acute distress. A&Ox4 LUNGS: Breath sounds clear to auscultation bilaterally and equal. No wheezes rales or rhonchi. HEART: Regular rate and rhythm without murmurs, rubs, gallops. ABDOMEN: Soft, nontender, nondistended abdomen. No guarding, no rebound. No masses appreciated. Normal bowel sounds present. No CVA tenderness bilaterally. No pulsatile mass. Musculoskeletal: Ext b/l: FROM to passive/active. Strength 5+/5. No deficits noted. No bony tenderness of extremities. Back: LROM to passive/active. Strength 5+/5. No vertebral point tenderness, stepoffs, or deformities. No other bony tenderness or ecchymosis. SLR mildly positive near 120 degrees to the rt leg ("pulling"). + tenderness to the rt L- paraspinal mm with spasming noted. No SI jt tenderness. Extremities: No cyanosis, clubbing, or edema b/l. Peripheral pulses 2+. Capillary refill less than 2 seconds. NEUROLOGICAL: Normal speech, ataxic gait. Normal sensory, motor exams. Reflexes 2+ b/l. PSYCH: Normal mood, normal affect. SKIN: Warm, Dry, normal turgor, no rashes or lesions noted. - INFECTION CONTROL TRAVEL OUTSIDE OF THE [place] IN LAST 30 DAYS: No - RESPIRATORY O2 Sat by Pulse Oximetry: 97 Course - Re-evaluation Re-evalutation: 08/01/17 13:49 Patient is an afebrile, well-hydrated, 27-year-old male who presents the ED with low back pain, suspect strain. Vitals are stable. PE is otherwise unremarkable for any focal neurological deficits. See L-spine x-ray results which showed a mild retrolisthesis of L4 on 5. Low suspicion for any meningitis , fracture, expanding/ruptured AAA, cauda equina syndrome, epidural mass lesion/ abscess, herniated disc causing severe spinal stenosis, or other systemic infection at this time. Patient is aware that his condition can change from initial presentation and that he needs monitor symptoms closely for any acute changes. Patient was given Decadron, Toradol, and Valium for her symptoms today. Overall his symptoms have improved since arrival. I will send him home with a prescription for naproxen and baclofen. Conservative measures for symptoms otherwise with back exercises reviewed. Recheck with your PCM in 3-5 days. Consider consult with orthopedics and physical therapy. Return to the ED with any worsening/concerning symptoms otherwise as reviewed discharge. Patient is in agreement. - Vital Signs Vital signs: Temp Pulse Resp BP Pulse Ox 98.0 F 77 20 145/102 H 97 08/01/17 11:50 08/01/17 11:50 08/01/17 11:50 08/01/17 11:50 08/01/17 11:50 Discharge - Discharge Clinical Impression: Low back pain Qualifiers: Chronicity: acute Back pain laterality: unspecified Sciatica presence: without sciatica Qualified Code(s): M54.5 - Low back pain Condition: Stable Disposition: HOME, SELF-CARE Instructions: Low Back Pain ([facility]), Ice Packs ([facility]), Warm Packs ([facility]), Muscle Strain ([facility]), Stretching Exercises for the Back ([facility]), Muscle Relaxers ([facility]) Additional Instructions: Rest, Ice Tylenol/ibuprofen as needed Light stretches daily Strength exercises as able Moist heat and massage may help monitor blood pressure closely; low sodium diet. F/u with your PCP in 3-5 days for a recheck Consider consult(s) with Orthopedics/physical therapy for ongoing/worsening symptoms Return to the ED with any worsening symptoms and/or development of fever, headache, chest pain, palpitations, syncope, shortness of breath, trouble breathing, abdominal pain, n/v/d, blood in stool/urine, loss of control of bowel /bladder, urinary retention, muscle weakness/paralysis, saddle anesthesia, numbness/tingling, or other worsening symptoms that are concerning to you. Prescriptions: Baclofen [Baclofen 10 mg Tablet] 5 - 10 mg PO BID PRN #10 tablet PRN Reason: Celecoxib [Celebrex 100 mg Capsule] 100 mg PO BID #10 capsule Forms: Elevated Blood Pressure, Return to Work Referrals: [facility] [Provider Group] - Follow up as needed
--- NOTE | 2017-08-01 13:34 | RADIOLOGY REPORT (SQ) ---
EXAM DESCRIPTION: L SPINE WHOLE COMPLETED DATE/TIME: 08/01/2017 1:07 pm REASON FOR STUDY: Low back pain COMPARISON: None. NUMBER OF VIEWS: Five views including obliques. TECHNIQUE: AP, lateral, oblique, and sacral radiographic images acquired of the lumbar spine. LIMITATIONS: None. FINDINGS: MINERALIZATION: Normal. SEGMENTATION: Transition vertebra are identified at the thoracolumbar and lumbosacral junction ALIGNMENT: There is very minimal retrolisthesis of L4 in relation to L5 VERTEBRAE: Maintained height. No fracture or worrisome bone lesion. DISCS: Preserved height. No significant osteophytes or end plate irregularity. POSTERIOR ELEMENTS: Pedicles and facets are intact. No pars defect or posterior arch defects. HARDWARE: None in the spine. PARASPINAL SOFT TISSUES: Normal. PELVIS: Intact as visualized. No fractures or worrisome bone lesions. SI joints intact. OTHER: No other significant finding. IMPRESSION: No significant vertebral compression or disc space reduction is seen. Transition verteb ra as noted above. There is minimal retrolisthesis of L4 in relation to L5 TECHNICAL DOCUMENTATION: JOB ID: [id number]- All Rights Reserved
[2017-08-01 14:20] VITALS: BP 157/98
== END 2017-08-01 14:21 | disposition home or self-care (01) ==
LOC: ER 11:45
DX: M54.5 Low back pain (principal)
CPT/HCPCS: 99283; 96372; 72110; J1885; J1100

== ENCOUNTER 2020-06-26 22:41 | Emergency (ER) | payer SELFPAY ==
[2020-06-26 22:55] VITALS: BP 155/85
[2020-06-26] MEDS ORDERED: HYDROCODONE/ACETAMINOPHEN 5-325 MG TABLET PO ONE (22:56)
--- NOTE | 2020-06-26 22:59 | ER Document Report ---
ED Medical Screen (RME) - General Chief Complaint: Post Surgical Pain Stated Complaint: SIDE SWOLLEN Time Seen by Provider: 06/26/20 22:47 Mode of Arrival: Ambulatory Information source: Patient Notes: 30-year-old male presented to ED for complaint of pain and swelling to the right scrotum and groin. He states 4 years ago he had a inguinal hernia repair and 4 days ago he started having increasing pain in the surgical area. He states intermittently since he had the surgery he has had some twinges but nothing like it is been for the last 4 days. He stated that over the last 24 hours he has had increase in swelling and now the pain is severe 5 out of 5. He states now the pain is radiating to his back. He states he has had no fevers no nausea vomiting has been able to have bowel movements but the pain is increasingly getting worse and sharper. I have ordered blood urine and a non-OB pelvic ultrasound. I have greeted and performed a rapid initial assessment of this patient. A comprehensive ED assessment and evaluation of the patient, analysis of test results and completion of medical decision making process will be conducted by an additional ED providers. TRAVEL OUTSIDE OF THE [place] IN LAST 30 DAYS: No - Related Data Allergies/Adverse Reactions: No Known Allergies Allergy (Verified 09/13/16 16:19) Past Medical History Pulmonary Medical History: Reports: Hx Bronchitis Renal/ Medical History: Denies: Hx Peritoneal Dialysis Musculoskeltal Medical History: Reports Hx Musculoskeletal Trauma Past Surgical History: Reports: Hx Abdominal Surgery - hernia repair 2014, Hx Inguinal Hernia - Right, Hx Orthopedic Surgery - R shoulder - Immunizations Immunizations up to date: Yes Hx Diphtheria, Pertussis, Tetanus Vaccination: No - pt refusing update
[2020-06-27 00:22] LABS: ABSOLUTE BASOPHILS # (AUTO) 0.1 10^3/uL (0.0-0.2); ABSOLUTE EOSINOPHILS # (AUTO) 0.1 10^3/uL (0.0-0.6); ABSOLUTE LYMPHOCYTES (AUTO) 4.1 10^3/uL (0.5-4.7); ABSOLUTE NEUT (AUTO) 3.4 10^3/uL (1.7-8.2); BASOPHILS % (AUTO) 0.7 % (0-2); EOSINOPHILS % (AUTO) 1.3 % (0-6); HEMATOCRIT 45.4 % (37.9-51.0); HEMOGLOBIN 15.7 g/dL (13.5-17.0); LYMPHOCYTES % (AUTO) 47.1 % (13-45); MEAN CORPUSCULAR HGB CONC 34.6 g/dL (32.0-36.0); MEAN CORPUSCULAR VOLUME 87 fl (80-97); MONOCYTES % (AUTO) 11.1 % (3-13); PLATELET COUNT 225 10^3/uL (150-450); RED BLOOD COUNT 5.23 10^6/uL (4.35-5.55); RED CELL DISTRIBUTION WIDTH 13.3 % (11.5-14.0); SEGMENTED NEUTROPHILS % (AUTO) 39.8 % (42-78); TOTAL CELLS COUNTED % (AUTO) 100 %; WHITE BLOOD COUNT 8.6 10^3/uL (4.0-10.5)
[2020-06-27 00:34] LABS: APPEARANCE,URINE CLEAR; BILIRUBIN,URINE NEGATIVE (NEGATIVE); COLOR,URINE YELLOW; GLUCOSE, URINE NEGATIVE (NEGATIVE); KETONES,URINE NEGATIVE (NEGATIVE); LEUKOCYTE ESTERASE,URINE NEGATIVE (NEGATIVE); NITRITE,URINE NEGATIVE (NEGATIVE); PROTEIN,URINE NEGATIVE (NEGATIVE); URINE SPECIFIC GRAVITY 1.025
[2020-06-27 00:42] LABS: ALBUMIN 4.7 g/dL (3.5-5.0); ALKALINE PHOSPHATASE 60 U/L (38-126); ANION GAP 12 (5-19); ASPARTATE AMINO TRANSFERASE 25 U/L (17-59); BILIRUBIN,DIRECT 0.1 mg/dL (0.0-0.4); BILIRUBIN,TOTAL 0.3 mg/dL (0.2-1.3); BLOOD UREA NITROGEN 20 mg/dL (7-20); CALCIUM 10.3 mg/dL (8.4-10.2); CARBON DIOXIDE 25 mmol/L (22-30); CHLORIDE 102 mmol/L (98-107); GLUCOSE 98 mg/dL (75-110); POTASSIUM 4.3 mmol/L (3.6-5.0); TOTAL PROTEIN 7.8 g/dL (6.3-8.2)
[2020-06-27] MEDS ORDERED: MORPHINE SULFATE 10 MG/ML INJ IV ONE (00:43)
[2020-06-27] MEDS ORDERED: ONDANSETRON HCL INJ/PF 4 MG/2 ML SDV IV ONE (00:43)
--- NOTE | 2020-06-27 00:51 | ER Document Report ---
ED GI/ - General Chief Complaint: Groin Pain Stated Complaint: SIDE SWOLLEN Time Seen by Provider: 06/26/20 22:47 Primary Care Provider: LORRI CHONG [Primary Care Provider] - Follow up as needed Mode of Arrival: Ambulatory Notes: Patient is a 30-year-old male who comes emergency department for chief complaint of pain to the right lower abdomen and scrotum. He states that he had hernia repair about 4 years ago at this facility, he states that the area has started to increase in size and over the past 2 days he started to develop severely worsening pain. He denies vomiting. He is able to eat, urinate, and have normal bowel movements without difficulty. He denies fever. He denies any other surgical history or any other complaints. TRAVEL OUTSIDE OF THE [place] IN LAST 30 DAYS: No - Related Data Allergies/Adverse Reactions: No Known Allergies Allergy (Verified 09/13/16 16:19) Past Medical History - General Information source: Patient - Social History Smoking Status: Never Smoker Chew tobacco use (# tins/day): No Frequency of alcohol use: None Drug Abuse: None Lives with: Family Family History: COPD Pulmonary Medical History: Reports: Hx Bronchitis Renal/ Medical History: Denies: Hx Peritoneal Dialysis Musculoskeletal Medical History: Reports Hx Musculoskeletal Trauma Past Surgical History: Reports: Hx Abdominal Surgery - hernia repair 2015, Hx Inguinal Hernia - Right, Hx Orthopedic Surgery - R shoulder - Immunizations Immunizations up to date: Yes Hx Diphtheria, Pertussis, Tetanus Vaccination: No - pt refusing update Review of Systems - Review of Systems Constitutional: No symptoms reported EENT: No symptoms reported Cardiovascular: No symptoms reported Respiratory: No symptoms reported Gastrointestinal: See HPI Genitourinary: See HPI Male Genitourinary: No symptoms reported Musculoskeletal: No symptoms reported Skin: No symptoms reported Hematologic/Lymphatic: No symptoms reported Neurological/Psychological: No symptoms reported Physical Exam - Vital signs Vitals: Temp Pulse Resp BP Pulse Ox 97.9 F 82 20 155/85 H 100 06/26/20 22:54 06/26/20 22:54 06/26/20 22:54 06/26/20 22:54 06/26/20 22:54 - Notes Notes: GENERAL: Alert, interacts well. No acute distress. HEAD: Normocephalic, atraumatic. EYES: Pupils equal, round, and reactive to light. Extraocular movements intact. ENT: Oral mucosa moist, tongue midline. Oropharynx unremarkable. Airway patent. NECK: Full range of motion. Supple. Trachea midline. No lymphadenopathy. LUNGS: Clear to auscultation bilaterally, no wheezes, rales, or rhonchi. No respiratory distress. Non-tender chest wall. HEART: Regular rate and rhythm. No murmur ABDOMEN: Soft, non-tender. Non-distended. Bowel sounds present in all 4 quadrants. GENITOURINARY: Swelling of the right scrotal area with mild generalized tenderness but no severe tenderness, no abnormal erythema or heat, no induration or fluctuance, cremaster reflex intact. Exam performed with Robby CARSON at bedside. EXTREMITIES: Moves all 4 extremities spontaneously. No edema, normal radial and dorsalis pedis pulses bilaterally. No cyanosis. BACK: no cervical, thoracic, lumbar midline tenderness. No saddle anesthesia, normal distal neurovascular exam. Moves all extremities in full range of motion. NEUROLOGICAL: Alert and oriented x3. Normal speech. Cranial nerves II through XII grossly intact. Strength 5/5 in all extremities. PSYCH: Normal affect, normal mood. SKIN: Warm, dry, normal turgor. No rashes or lesions noted. Course - Re-evaluation Re-evalutation: On exam patient has a very swollen scrotum on the right side with tenderness but no erythema suggesting infection, no induration or fluctuance, normal cremaster reflex, no signs of trauma. Unfortunately the initial ultrasound was performed only of the pelvis, I had to order another ultrasound of the scrotum for evaluation. This shows of large hydrocele on the right with possible septations and cannot completely rule out infection. However there is no evidence of torsion, there is good blood flow throughout, patient has no fever, leukocytosis, or signs of infection on exam. I discussed details with patient at length. Provided with symptom management, discussed importance of urology follow-up, discussed return precautions with patient and significant other. They state understanding and agreement. - Vital Signs Vital signs: Temp Pulse Resp BP Pulse Ox 97.9 F 82 20 155/85 H 100 06/26/20 22:54 06/26/20 22:54 06/26/20 22:54 06/26/20 22:54 06/26/20 22:54 - Laboratory Result Diagrams: 06/27/20 00:02 06/27/20 00:02 Laboratory results interpreted by me: 06/27/20 06/27/20 06/27/20 00:02 00:02 00:02 Lymph % (Auto) 47.1 H Seg Neutrophils % 39.8 L Calcium 10.3 H Urine Urobilinogen 4.0 H Urine Ascorbic Acid 20 H Discharge - Discharge Clinical Impression: Scrotal swelling, Scrotal pain Condition: Stable Disposition: HOME, SELF-CARE Additional Instructions: Your work-up shows a large hydrocele in the right side of the scrotum. This is a large fluid-filled area that will most likely need treatment by a urologist. I recommend that you call on Sunday to follow-up with either the urology referral listed below or your urologist of choice. Take your report. While awaiting this I recommend supportive underwear, the anti-inflammatory as prescribed, and take the pain medication if needed. Come back if you worsen including severe worsening pain, vomiting, fever, developing or spreading redness, or any other concerning symptoms. [facility] [address] [place], [place] [id number] [facility] [address] [place], [place] [id number] Prescriptions: Naproxen 500 mg PO BID PRN #20 tablet PRN Reason: Oxycodone HCl/Acetaminophen [Percocet 5-325 mg Tablet] 1 - 2 tab PO TID PRN #15 tab PRN Reason: Forms: Return to Work, Elevated Blood Pressure Referrals: LOCALMD,NO [Primary Care Provider] - Follow up as needed
--- NOTE | 2020-06-27 01:24 | RADIOLOGY REPORT (SQ) ---
Ultrasound of the bilateral inguinal regions: 06/26/2020 10:54 PM CDT HISTORY: 30-year-old patient with scrotal and pelvic pain most pronounced on the right side. COMPARISON: None available TECHNIQUE: Multiple grayscale and color Doppler images of the bilateral inguinal regions were obtained. FINDINGS: No focal fluid collection is seen. There are nonspecific bilateral inguinal lymph nodes present. The patient had prior history of right inguinal hernia repair. No findings are seen to suggest a recurrent hernia. IMPRESSION: No gross adenopathy seen at the bilateral neural canal regions.
--- NOTE | 2020-06-27 03:21 | RADIOLOGY REPORT (SQ) ---
TESTICULAR ULTRASOUND: 06/27/2020 2:19 AM DIRECTOR OF SAFETY AND SECURITY HISTORY: 30-year old patient with right scrotal swelling. COMPARISON: None available TECHNIQUE: Multiple longitudinal and transverse sonographic images were obtained of the right and left testicle. Color and spectral doppler images were obtained of the testicular vasculature. FINDINGS: Both testicles appear homogenous without evidence of a mass. There is diffuse scrotal wall thickening present. There is a large amount of fluid seen within the right hemiscrotum. This has some internal septations. The left testicle appears normal in size, and it measures 3.5 x 2.4 x 2.3 cm. The left testicle appears homogeneous in echotexture and demonstrates arterial blood flow within the testicle. The left epididymal head appears normal in size and does not appear hyperemic. A left-sided varicocele is present. The right testicle appears normal in size, and it measures 4.5 x 3.7 x 2.7 cm. The right testicle appears homogeneous in echotexture and demonstrates good arterial blood flow within the testicle. The right epididymal head appears normal in size and does not appear hyperemic. IMPRESSION: There is a large right hydrocele containing some septations. Superimposed infection is not fully excluded. There is a left-sided varicocele present. Both testicles demonstrate normal color Doppler vascularity.
[2020-06-27] MEDS ORDERED: HYDROCODONE/ACETAMINOPHEN 5-325 MG (6 TAB/ER DISP) PO PRN (03:42)
== END 2020-06-27 04:19 | disposition home or self-care (01) ==
LOC: ER 22:41
DX: N43.3 Hydrocele, unspecified (principal); I86.1 Scrotal varices; R10.30 Lower abdominal pain, unspecified; N50.82 Scrotal pain
CPT/HCPCS: 36415; 76857; 76870; 80053; 81001; 85025; 93976; 99284